=== PATIENT | male | born 1995 | race African-American/Black ===

== ENCOUNTER 2022-02-19 21:00 | Emergency (ER) | payer OTHER ==
[2022-02-19] MEDS ORDERED: Proparacaine 0.5% Opth 15 ML BOT ONE (23:15)
[2022-02-19] MEDS ORDERED: Fluorescein Opthalmic Strip ONE (23:15)
[2022-02-19] MEDS ORDERED: Erythromycin Base 0.5% Oint 1 GM TUBE ONE (23:44)
== END 2022-02-20 00:25 | disposition home or self-care (01) ==
LOC: ERS 21:00
DX: S05.02XA Injury of conjunctiva and corneal abrasion without foreign body, left eye, initial encounter (principal); Y04.0XXA Assault by unarmed brawl or fight, initial encounter
CPT/HCPCS: 99283